=== PATIENT | male | born 1940 | race Caucasian/White ===

== ENCOUNTER 2018-06-08 05:44 | Inpatient (IN) ==
[2018-06-08] MEDS ORDERED: Chlorhexidine Gluconate 2% 1 Pack (2 Cloths) TOPICAL SCH (06:30)
[2018-06-08] MEDS ORDERED: Metoprolol Tartrate 25 MG Tablet PO SCH (06:30)
[2018-06-08] MEDS ORDERED: Vancomycin Inj 1 GM/200 ML PIGGYBACK IV.SIG SCH (07:00)
[2018-06-08] MEDS ORDERED: Sodium Chlor 0.9% Inj 500 ML IV.SIG SCH (07:00)
[2018-06-08] MEDS ORDERED: fentaNYL Citrate Inj 250 MCG/5 ML Ampul ONE ×2 (07:00→09:06)
[2018-06-08] MEDS ORDERED: Sugammadex Inj 200 MG/2 ML Vial IV.PUSH ONE (11:10)
[2018-06-08] MEDS: Bupivacaine/Epinephrine Inj 0.25% 50 ML Vial ONE ×2 (11:22→17:17)
[2018-06-08] MEDS ORDERED: Bisacodyl 10 MG Supp RECTAL PRN (11:42)
[2018-06-08] MEDS ORDERED: Post-op Orders (for Pharmacy) OTHER ONE (11:42)
[2018-06-08] MEDS ORDERED: Morphine Inj 4 MG/ML Vial IV.PUSH PRN (11:42)
[2018-06-08] MEDS ORDERED: Naloxone Inj 0.4 MG/ML Vial IV.PUSH PRN ×2 (11:42→11:47)
[2018-06-08] MEDS ORDERED: Promethazine 25 MG Supp RECTAL PRN (11:42)
--- NOTE | 2018-06-08 11:42 | P.OP ---
- Preoperative Diagnosis (1) Incisional hernia, incarcerated - Postoperative Diagnosis (1) Incisional hernia, incarcerated Date of procedure: 06/08/18 Procedure: Laparoscopic lysis of adhesions Laparoscopic incisional hernia repair with mesh Implants: [place]-Migel DualMesh 18 x 24 cm Anesthesia: WOODYA Surgeon: Sunil Olivia MD Fur Finisher Tailor: Jazmin Rivera PA-C Estimated blood loss (mL): 10 IV fluids (mL): 1,500 Pathology: none sent Operation and Findings: The patient was taken to the operating room and placed on the operating table in the supine position. After an adequate level of general endotracheal anesthesia was achieved, the abdomen was shaved prepped and draped. Timeout was taken confirming the correct patient, site, and procedure to be performed. Incision was made in the left upper quadrant and the fascia was incised sharply. The muscles were split in the direction of the fibers bluntly and the peritoneal cavity entered uneventfully. A 12 mm millimeter balloon trocar was inserted and the balloon inflated. The abdomen was insufflated. 3 5 mm trochars were then placed with the first in the left lower quadrant, entering the abdominal cavity uneventfully. The harmonic scalpel was used to take down adhesions in the right lower quadrant where the patient previously had had an appendectomy. When this was accomplished, both the right lower quadrant and right upper quadrant trocars were able to be placed under direct vision uneventfully. At this point, adhesions to the anterior abdominal wall were taken down with both blunt dissection reducing the hernias (which were incarcerated) and use of the harmonic scalpel to take down adhesions. Care was taken to avoid any injury to the colon which was nearby. When this was completed a number 1 V-lock suture was used to close the primary defects down to minimize risk of seroma formation postop. When this was completed, the defect was measured and was found to be approximately 10 x 15 cm. An 18 x 24 cm [place]-Migel DualMesh was chosen and the corners rounded. 0 [place] sutures were placed at the top, bottom and sides. The mesh was rolled up and placed in the 12 mm trocar and then unfurled. The 4 sutures were placed trans-fascially followed by placement of the tacks utilizing the Capture device. Four additional [place] sutures were placed between the previous preplaced sutures. When this was completed and with hemostasis assured, insufflation was discontinued and the trocars removed. It should be noted that 1 of the 5 mm trocars was moved to the left subcostal region to allow for better placement of the tacks and sutures. After removal of all of the trocars, the left upper quadrant fascial defect was closed with 0 Vicryl suture in 2 layers. The skin was closed at all of the trocar sites with 4-0 Vicryl in an interrupted buried fashion. All the trans-fascial suture sites were dressed with Steri-Strips as were the trocar sites. The remaining local anesthetic had been injected into the trocar sites prior to closure of the skin. An abdominal binder was applied and the patient was then extubated and taken back to the recovery room in stable condition. Sponge and needle counts were reported to be correct.
[2018-06-08] MEDS ORDERED: Morphine Inj 30 MG/30 ML PCA.VIAL PCA PRN (11:47)
[2018-06-08] MEDS ORDERED: Morphine Inj 30 MG/30 ML PCA.VIAL PCA ONE (11:55)
[2018-06-08] MEDS ORDERED: Glycopyrrolate Inj 1 MG/5 ML Syringe IV.PUSH ONE (12:00)
[2018-06-08] MEDS ORDERED: Neostigmine Inj 5 MG/5 ML Syringe IV.PUSH ONE (12:00)
[2018-06-08] MEDS ORDERED: Ketorolac Inj 30 MG/ML (IVP) Vial IV.PUSH ONE (12:00)
[2018-06-08] MEDS ORDERED: Lidocaine PF 1% Inj 5 ML Syringe INFILTRATN ONE (12:00)
[2018-06-08] MEDS: Sod Chloride 0.9% Inj 1,000 ML IV.CONT SCH (12:11)
[2018-06-08] MEDS: Senna/Docusate Sodium 8.6/50 MG Tablet PO SCH (20:17)
[2018-06-08] MEDS: Famotidine 20 MG Tablet PO SCH (20:17)
[2018-06-09] MEDS: Sod Chloride 0.9% Inj 1,000 ML IV.CONT SCH ×2 (02:59→08:02)
[2018-06-09] MEDS: Senna/Docusate Sodium 8.6/50 MG Tablet PO SCH ×2 (08:02→20:51)
[2018-06-09] MEDS: Famotidine 20 MG Tablet PO SCH ×2 (08:02→20:50)
[2018-06-09] MEDS ORDERED: Enoxaparin Inj 40 MG/0.4 ML Syringe SQ SCH (11:00)
--- NOTE | 2018-06-09 11:14 | P.PNGS ---
<Hilaria Cobb - Last Filed: 06/09/18 11:12> Subjective Interval history: Resting in bed; pain controlled; tolerating full liquids Physical Exam Vital signs: Vital Signs 06/08/18 11:16 06/08/18 11:30 06/08/18 11:45 Temperature 97.7 F Pulse Rate 72 67 60 Respiratory Rate 18 22 20 Blood Pressure 138/73 137/70 141/70 H Pulse Oximetry 95 95 06/08/18 12:00 06/08/18 12:15 06/08/18 13:15 Temperature Pulse Rate 65 65 69 Respiratory Rate 18 18 18 Blood Pressure 134/72 145/67 H 130/69 Pulse Oximetry 95 95 95 06/08/18 14:20 06/08/18 16:00 06/08/18 20:00 Temperature 97.9 F 97.9 F 97.9 F Pulse Rate 72 70 67 Respiratory Rate 18 18 20 Blood Pressure 132/66 125/72 158/84 H Pulse Oximetry 95 94 L 97 06/09/18 00:30 06/09/18 04:35 06/09/18 08:00 Temperature 97.6 F 97.6 F 98.0 F Pulse Rate 61 60 58 L Respiratory Rate 18 18 18 Blood Pressure 161/89 H 160/89 H 161/91 H Pulse Oximetry 95 97 95 Intake & Output 06/08/18 06/09/18 06/09/18 18:59 06:59 18:59 Intake Total 1600 / 1600 1880 / 1880 Output Total 710 / 710 700 / 700 Balance 890 / 890 1180 / 1180 Weight 100.6 kg 100.6 kg Intake: IV 1100 / 1100 1400 / 1400 NS Inj 1,000 ML @ 100 mls/hr IV 1000 / 1000 .CONT .Q10H DESI Rx#:[id number] Ofirmev Inj 1,000 mg In 100 ml 100 / 100 200 / 200 @ 400 mls/hr IV.SIG Q6H DESI Rx# :[id number] LR 1000 mL Inj 1,000 ML @ 30 1000 / 1000 mls/hr IV.SIG .Q24H DESI Rx#: [id number] Vancomycin Inj 1 gm In 200 ml @ 200 / 200 200 mls/hr IV.SIG EQUITIES ANALYST DESI Rx#:[id number] Oral 480 / 480 Anesthesia Amount 500 / 500 Output: Urine 700 / 700 700 / 700 Estimated Blood Loss 10 / 10 Other: # Voids 3 # Bowel Movements 1 Weight On Admission 100.6 kg Narrative: Alert and awake Cardio: RRR Resp:CTAB Abd: mildly distended; lap sites c/d/i with Steri strips in place; mildly tender Assessment and Plan - Assessment (1) Incisional hernia, incarcerated Code(s): K43.0 - Incisional hernia with obstruction, without gangrene Status: Acute - Plan 77 year old male POD1 lap ventral hernia repair -Continue full liquid diet -Pain control -KVO fluids -Restart Xarelto -OOB and mobilize -Await bowel return <Sunil Olivia - Last Filed: 06/09/18 19:30> Physical Exam Vital signs: Vital Signs 06/08/18 20:00 06/09/18 00:30 06/09/18 04:35 Temperature 97.9 F 97.6 F 97.6 F Pulse Rate 67 61 60 Respiratory Rate 20 18 18 Blood Pressure 158/84 H 161/89 H 160/89 H Pulse Oximetry 97 95 97 06/09/18 08:00 06/09/18 12:00 06/09/18 16:00 Temperature 98.0 F 97.2 F L 97.9 F Pulse Rate 58 L 61 61 Respiratory Rate 18 17 19 Blood Pressure 161/91 H 170/96 H 176/91 H Pulse Oximetry 95 95 96 Intake & Output 06/09/18 06/09/18 06/10/18 06:59 18:59 06:59 Intake Total 1880 / 1880 1330 / 1330 Output Total 700 / 700 Balance 1180 / 1180 1330 / 1330 Weight 100.6 kg Intake: IV 1400 / 1400 830 / 830 NS Inj 1,000 ML @ 30 mls/hr IV. 1000 / 1000 830 / 830 CONT .Q24H DESI Rx#:[id number] Ofirmev Inj 1,000 mg In 100 ml 200 / 200 @ 400 mls/hr IV.SIG Q6H DESI Rx# :[id number] Vancomycin Inj 1 gm In 200 ml @ 200 / 200 200 mls/hr IV.SIG EQUITIES ANALYST DESI Rx#:[id number] Oral 480 / 480 500 / 500 Output: Urine 700 / 700 Other: # Voids 10 # Bowel Movements 0 Assessment and Plan - Assessment (1) Incisional hernia, incarcerated Code(s): K43.0 - Incisional hernia with obstruction, without gangrene Status: Acute - Plan Using minimal pain meds Sites all clean and dry Restart oral anticoagulation Await return of bowel function Suppository PRN - Attending Attestation The exam, history, and the medical decision-making described in the above note were completed with the assistance of the mid-level provider. I reviewed and agree with the findings presented. I attest that I had a [id number] encounter with the patient on the same day, and personally performed and documented my assessment and findings in the medical record.
[2018-06-09] MEDS: Rivaroxaban 20 MG Tablet PO SCH (15:37)
[2018-06-09] MEDS ORDERED: Bisacodyl 10 MG Supp RECTAL ONE (21:00)
[2018-06-10] MEDS: Bisacodyl 10 MG Supp RECTAL SCH (09:40)
[2018-06-10] MEDS: Rivaroxaban 20 MG Tablet PO SCH (09:40)
[2018-06-10] MEDS: Famotidine 20 MG Tablet PO SCH ×2 (09:40→21:07)
[2018-06-10] MEDS: Senna/Docusate Sodium 8.6/50 MG Tablet PO SCH ×2 (09:40→21:07)
--- NOTE | 2018-06-10 14:41 | P.PNGS ---
<Hilaria Cobb - Last Filed: 06/10/18 14:40> Subjective Interval history: Up to chair; concerned he has not had a BM since surgery Physical Exam Vital signs: Vital Signs 06/09/18 16:00 06/09/18 20:32 06/10/18 00:36 Temperature 97.9 F 98.8 F 98.5 F Pulse Rate 61 62 68 Respiratory Rate 19 18 18 Blood Pressure 176/91 H 164/97 H 160/88 H Pulse Oximetry 96 96 96 06/10/18 08:00 06/10/18 12:00 Temperature 98.3 F 98.5 F Pulse Rate 65 71 Respiratory Rate 19 17 Blood Pressure 186/109 H 130/77 Pulse Oximetry 94 L 96 Intake & Output 06/09/18 06/10/18 06/10/18 18:59 06:59 18:59 Intake Total 1330 / 1330 580 / 580 Balance 1330 / 1330 580 / 580 Weight 100.6 kg Intake: IV 830 / 830 NS Inj 1,000 ML @ 30 mls/hr IV. 830 / 830 CONT .Q24H DESI Rx#:[id number] Oral 500 / 500 580 / 580 Other: # Voids 10 3 # Bowel Movements 0 Narrative: Alert and awake Cardio: RRR Resp: CTAB Abd: minimally tender; lap sites c/d/i; binder in place Assessment and Plan - Assessment (1) Incisional hernia, incarcerated Code(s): K43.0 - Incisional hernia with obstruction, without gangrene Status: Acute - Plan 77 year old male POD2 lap ventral hernia repair -Advance to regular diet -Pain control with Brothers -Continue Xarelto -OOB and mobilize -Await bowel return---MOM, lactulose available -Discussed with SAMUEL Flores <Sunil Olivia - Last Filed: 06/12/18 07:27> Physical Exam Vital signs: Vital Signs 06/11/18 08:00 06/11/18 12:00 06/11/18 16:00 Temperature 97.5 F L 97.9 F 97.5 F L Pulse Rate 59 L 70 77 Respiratory Rate 18 18 18 Blood Pressure 129/82 143/85 H 159/92 H Pulse Oximetry 98 97 95 06/11/18 20:00 06/12/18 00:00 Temperature 98.1 F 98.5 F Pulse Rate 77 76 Respiratory Rate 17 17 Blood Pressure 135/84 131/82 Pulse Oximetry 97 98 Intake & Output 06/11/18 06/12/18 06/12/18 18:59 06:59 18:59 Intake Total 580 / 580 480 / 480 Balance 580 / 580 480 / 480 Intake: Oral 580 / 580 480 / 480 Other: # Voids 4 2 # Bowel Movements 2 Assessment and Plan - Assessment (1) Incisional hernia, incarcerated Code(s): K43.0 - Incisional hernia with obstruction, without gangrene Status: Acute - Plan No complaints; not using much pain med Await return bowel function Utilize laxatives, as pt. has no nausea and is tolerating diet The exam, history, and the medical decision-making described in the above note were completed with the assistance of the mid-level provider. I reviewed and agree with the findings presented. I attest that I had a [id number] encounter with the patient on the same day, and personally performed and documented my assessment and findings in the medical record.
[2018-06-11] MEDS: Rivaroxaban 20 MG Tablet PO SCH (08:25)
[2018-06-11] MEDS: Senna/Docusate Sodium 8.6/50 MG Tablet PO SCH ×2 (08:25→21:04)
[2018-06-11] MEDS: Bisacodyl 10 MG Supp RECTAL SCH (08:25)
[2018-06-11] MEDS: Famotidine 20 MG Tablet PO SCH ×2 (08:25→21:04)
--- NOTE | 2018-06-11 12:21 | P.PNGS ---
<Hilaria Cobb - Last Filed: 06/11/18 13:10> Subjective Interval history: Resting in bed; has walked in hallways several times today; awaiting bowel function Physical Exam Vital signs: Vital Signs 06/10/18 16:00 06/10/18 20:00 06/11/18 00:00 Temperature 98.6 F 98.2 F 97.2 F L Pulse Rate 67 87 60 Respiratory Rate 18 18 16 Blood Pressure 128/79 144/89 H 155/74 H Pulse Oximetry 94 L 93 L 95 06/11/18 08:00 Temperature 97.5 F L Pulse Rate 59 L Respiratory Rate 18 Blood Pressure 129/82 Pulse Oximetry 98 Intake & Output 06/10/18 06/11/18 06/11/18 18:59 06:59 18:59 Intake Total 515 / 515 Balance 515 / 515 Intake: Oral 515 / 515 Other: # Voids 7 2 # Bowel Movements 0 Narrative: Alert and awake Cardio: RRR Resp: CTAB Abd: binder in place; lap sites c/d/i; minimally tender to palpation Assessment and Plan - Assessment (1) Incisional hernia, incarcerated Code(s): K43.0 - Incisional hernia with obstruction, without gangrene Status: Acute - Plan 77 year old male POD3 lap ventral hernia repair -Tolerating regular diet -Pain control with Premier -Continue Xarelto -OOB and mobilize -Await bowel return---MOM, lactulose available; added Miralax -Discussed with SAMUEL Chowdhury -Hopefully home tomorrow <Sunil Olivia - Last Filed: 06/12/18 07:37> Physical Exam Vital signs: Vital Signs 06/11/18 08:00 06/11/18 12:00 06/11/18 16:00 Temperature 97.5 F L 97.9 F 97.5 F L Pulse Rate 59 L 70 77 Respiratory Rate 18 18 18 Blood Pressure 129/82 143/85 H 159/92 H Pulse Oximetry 98 97 95 06/11/18 20:00 06/12/18 00:00 Temperature 98.1 F 98.5 F Pulse Rate 77 76 Respiratory Rate 17 17 Blood Pressure 135/84 131/82 Pulse Oximetry 97 98 Intake & Output 06/11/18 06/12/18 06/12/18 18:59 06:59 18:59 Intake Total 580 / 580 480 / 480 Balance 580 / 580 480 / 480 Intake: Oral 580 / 580 480 / 480 Other: # Voids 4 2 # Bowel Movements 2 Assessment and Plan - Assessment (1) Incisional hernia, incarcerated Code(s): K43.0 - Incisional hernia with obstruction, without gangrene Status: Acute - Plan Patient had a small bowel movement this afternoon. Will mobilize patient and observe this evening; if no issues, will discharge home in AM. F/U my office one week The exam, history, and the medical decision-making described in the above note were completed with the assistance of the mid-level provider. I reviewed and agree with the findings presented. I attest that I had a [id number] encounter with the patient on the same day, and personally performed and documented my assessment and findings in the medical record.
[2018-06-11] MEDS: Polyethylene Glycol 3350 17 GM Packet PO SCH (14:20)
[2018-06-12] MEDS: Rivaroxaban 20 MG Tablet PO SCH (08:00)
[2018-06-12] MEDS: Senna/Docusate Sodium 8.6/50 MG Tablet PO SCH (08:01)
[2018-06-12] MEDS: Polyethylene Glycol 3350 17 GM Packet PO SCH (08:02)
[2018-06-12] MEDS: Famotidine 20 MG Tablet PO SCH (08:03)
[2018-06-12] MEDS: Bisacodyl 10 MG Supp RECTAL SCH (08:03)
--- NOTE | 2018-06-15 13:20 | P.DS ---
Date of admission: 06/08/18 11:50 Primary care physician: Gilles Dougherty Attending physician on discharge: Sunil Olivia Anticipated date of discharge: 06/12/18 Brief History from admission: 77 year old male POD4 laparoscopic ventral hernia repair. DS: Diagnosis - Discharge Diagnosis (1) Incisional hernia, incarcerated Status: Acute DS: Medications - Discharge Medications Prescriptions: hydrocodone-acetaminophen 1 tab PO Q4H PRN #15 tab PRN Reason: acute post op pain exception DS: Summary Hospital Course: This is a 77 year old male POD4 laparoscopic ventral hernia repair with mesh. His diet was advanced as tolerated. His pain was controlled using oral pain medications. His bowel function returned. He will follow up in the office. - Time Spent with Patient Total time spent providing and/or coordinating discharge services: Less than 30 minutes - Quality: VTE Deep Vein Thrombosis/Pulmonary Embolism Present on Admission: Yes Exam Narrative: Alert and awake Cardio: RRR Resp: CTAB Abd: binder in place; lap sites c/d/i Results Procedures completed during hospitalization: laparoscopic ventral hernia repair Discharge Plan - Discharge Disposition Patient Disposition: Discharge Home - Discharge Condition Condition: Good - Discharge Order Discharge Orders: Discharge Order (Routine); Ordered 06/12/18 Ordered By: Sunil Olivia - Physicians Team Primary Care Provider: Gilles Dougherty Attending Provider: Sunil Olivia Other Providers: Surgeons,[facility] - Rxs /Orders / Referrals /Forms Prescriptions: New hydrocodone-acetaminophen 5-325 mg Tablet 1 tab PO Q4H PRN (Reason: acute post op pain exception) Qty: 15 RF: 0 Continue azelastine 0.15 % (205.5 mcg) [place],Non-Aerosol 1 spray INTRANASAL BID coQ10 (ubiquinol) 100 mg Capsule 200 mg PO DAILY gabapentin 300 mg Capsule 300 mg PO TID glucosamine [id number] 375-250-300 mg Tablet Extended Release 1 tab PO DAILY ibuprofen [Motrin IB] 200 mg Tablet 200 mg PO Q6-8H PRN (Reason: Pain) magnesium oxide,aspartate,citr [Triple Magnesium Complex] 400 mg Capsule 1 cap PO DAILY multivitamin [Men's Multi-Vitamin] Tablet 1 tab PO DAILY [id number] oil [[place]-3 Fish Oil] 300-1,000 mg Capsule 1 cap PO DAILY potassium 99 mg Tablet 99 mg PO DAILY rivaroxaban [Xarelto] 20 mg Tablet 20 mg PO DAILY rosuvastatin [Crestor] 5 mg Tablet 5 mg PO DAILY vitamin E 400 unit Capsule 400 unit PO DAILY Referrals: Sunil Olivia MD [GENERAL SURGERY] - See Instructions (Appt set for June 22 at 2:40PM) Gilles Dougherty III [Primary Care Provider] - See Instructions (*Call to schedule follow up appointment*) - Discharge Instructions Patient Printed Instructions: Hydrocodone/Acetaminophen (By mouth), Pain Management After Surgery (DC), Acute Wound Care (DC), Inguinal Hernia Repair (DC )
== END 2018-06-12 10:15 | disposition home or self-care (01) ==
LOC: HSDC 05:44 → HSDI 11:50 → N07 14:37
PROVIDERS: ADMIT Surgery Trauma Surgery; ATTEND Surgery Trauma Surgery